=== PATIENT | male | born 1945 | race Two or more races ===

== ENCOUNTER 2017-09-17 18:26 | Emergency (ER) | payer OTHER ==
[2017-09-17 19:02] VITALS: BP 148/85; PULSE 83; TEMP 98.1; BMI 75.9
--- NOTE | 2017-09-17 19:57 | PDOC ---
History of Present Illness - General History Source: Patient Exam Limitations: Intoxication - History of Present Illness Initial Comments: 09/17/17 20:55 The patient is a 72 year old male with a significant PMH of alcohol abuse, HTN, hyperlipidemia, and arthritis who presents to the emergency department seeking detox. The patient reports drinking for the past 3 days and has developed shortness of breath. The patient also reports dysuria, diarrhea, and vomiting over the past week. He reports last taking his prescribed medications about 3 days ago. The patient is currently a vague historian. The patient denies chest pain, headache and dizziness. Denies fever, chills, and constipation. Denies urinary frequency, urgency and hematuria. Allergies: NKDA Past surgical history: None reported. Social history: Everyday alcohol use. No reported cigarette or drug use. PCP: Dr. 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 ) COPD: No Dementia: No (deneis memory issues ) Diabetes: No GI Disorders: Yes (gastritis) Disorders: No HTN: Yes Hypercholesterolemia: Yes Kidney Stones: No Liver Disease: No (deneis ) Seizures: No Thyroid Disease: No Other medical history: BPH - Surgical History Abdominal Surgery: No Appendectomy: No Cardiac Surgery: Yes (CARDIAC CATH) Cholecystectomy: No Lung Surgery: No Neurologic Surgery: No Orthopedic Surgery: Yes (right knee/leg) - Reproductive History Testicular Surgery: No - Immunization History Immunization Up to Date: Yes - Suicide/Smoking/Psychosocial Hx Smoking History: Unknown if ever smoked Have you smoked in the past 12 months: No Information on smoking cessation initiated: No 'Breaking Loose' booklet given: 11/16/15 Hx Alcohol Use: Yes Drug/Substance Use Hx: No Substance Use Type: Alcohol Hx Substance Use Treatment: Yes (with us) <Rossana Olmstead - Last Filed: 09/17/17 21:50> - Past Medical History Allergies/Adverse Reactions: Allergies Allergy/AdvReac Type Severity Reaction Status Date / Time No Known Drug Allergies Allergy Verified 09/17/17 18:49 Home Medications: Ambulatory Orders Unobtainable [Unobtainable] 09/17/17 Review of Systems - Review of Systems Able to Perform ROS?: Yes Comments:: 09/17/17 20:56 GENERAL/CONSTITUTIONAL: No fever or chills. No weakness. HEAD, EYES, EARS, NOSE AND THROAT: No change in vision. No ear pain or discharge. No sore throat. CARDIOVASCULAR: (+) Shortness of breath. No chest pain RESPIRATORY: No cough, wheezing, or hemoptysis. GASTROINTESTINAL: (+) Nausea. (+) Vomiting. (+) Diarrhea. No constipation. GENITOURINARY: No dysuria, frequency, or change in urination. MUSCULOSKELETAL: No joint or muscle swelling or pain. No neck or back pain. SKIN: No rash NEUROLOGIC: No headache, vertigo, loss of consciousness, or change in strength/ sensation. ENDOCRINE: No increased thirst. No abnormal weight change. HEMATOLOGIC/LYMPHATIC: No anemia, easy bleeding, or history of blood clots. ALLERGIC/IMMUNOLOGIC: No hives or skin allergy. <Bandar Newman - Last Filed: 09/17/17 20:55> *Physical Exam - Vital Signs Last Vital Signs Temp Pulse Resp BP Pulse Ox 98.1 F 83 18 148/85 94 L 09/17/17 18:51 09/17/17 18:51 09/17/17 18:51 09/17/17 18:51 09/17/17 18:51 - Physical Exam Comments: 09/17/17 20:56 GENERAL: Awake, alert, in no acute distress. HEAD: No signs of trauma EYES: PERRLA, EOMI, sclera anicteric, conjunctiva clear ENT: Auricles normal inspection, hearing grossly normal, nares patent, oropharynx clear without exudates. Moist mucosa NECK: Normal ROM, supple, no lymphadenopathy, JVD, or masses LUNGS: Breath sounds equal, clear to auscultation bilaterally. No wheezes, and no crackles HEART: Regular rate and rhythm, normal S1 and S2, no murmurs, rubs or gallops ABDOMEN: Soft, nontender, normoactive bowel sounds. No guarding, no rebound. No masses EXTREMITIES: Normal range of motion, no edema. No clubbing or cyanosis. No cords, erythema, or tenderness NEUROLOGICAL: Cranial nerves II through XII grossly intact. Normal speech. SKIN: Warm, Dry, normal turgor, no rashes or lesions noted. <Bandar Newman - Last Filed: 09/17/17 20:55> - Vital Signs Last Vital Signs Temp Pulse Resp BP Pulse Ox 98.1 F 83 18 148/85 94 L 09/17/17 18:51 09/17/17 18:51 09/17/17 18:51 09/17/17 18:51 09/17/17 18:51 <Rossana Olmstead - Last Filed: 09/17/17 21:50> ED Treatment Course - LABORATORY CBC & Chemistry Diagram: 09/17/17 21:00 09/17/17 21:00 <Rossana Olmstead - Last Filed: 09/17/17 21:50> *DC/Admit/Observation/Transfer - Attestations Scribe Attestion: 09/17/17 20:57 Documentation prepared by Bandar Newman, acting as medical registrar for Rossana Olmstead MD. <Bandar Newman - Last Filed: 09/17/17 20:55> - Discharge Dispostion Admit: No <Rossana Olmstead - Last Filed: 09/17/17 21:50> Diagnosis at time of Disposition: Alcohol intoxication - Discharge Dispostion Disposition: HOME Condition at time of disposition: Improved - Patient Instructions Printed Discharge Instructions: DI for Alcohol Abuse Additional Instructions: PT IS GOING TO [facility] DETOX WITH HAMMER RUNNER
[2017-09-17] MEDS ORDERED: FOLIC ACID INJECTION - 1 MG, THIAMINE HCL 100 MG, MULTIVIT INJECTION ADULT 10 ML in SOD... IVPB ONE (20:48)
[2017-09-17 21:12] LABS: BASOPHIL 1.4 % (0-2.0); EOSINOPHIL 0.3 % (0-4.5); MCH 30.3 pg (25.7-33.7); MEAN CELL VOLUME 89.1 fl (80-96); MEAN PLT VOLUME 7.8 fl (7.5-11.1); NEUTROPHILS 49.7 % (42.8-82.8); PLATELET COUNT 230 K/MM3 (134-434); RDW 13.9 % (11.9-15.9); WHITE BLOOD COUNT 8.7 K/mm3 (4.0-10.0)
[2017-09-17 21:35] LABS: ANION GAP 10 (8-16); BILIRUBIN,TOTAL 0.9 mg/dL (0.2-1.0); CALCIUM 7.5 mg/dL (8.5-10.1); CO2 27 mmol/L (21-32); CREATININE 0.9 mg/dL (0.7-1.3); GLUCOSE,RANDOM 115 mg/dL (74-106); SGOT/AST 44 U/L (15-37); SGPT/ALT 39 U/L (12-78); TOT PROT 7.5 g/dl (6.4-8.2)
[2017-09-17 21:38] LABS: ALK PHOS 85 U/L (45-117); CPK 816 IU/L (39-308); TROPONIN I < 0.02 ng/ml (0.00-0.05)
[2017-09-17 21:48] LABS: INR 1.07 (0.82-1.09); PROTHROMBIN TIME (PATIENT) 12.1 SEC (9.98-11.88)
--- NOTE | 2017-09-18 14:03 | EKG ---
Test Reason : Blood Pressure : / mmHG Vent. Rate : 080 BPM Atrial Rate : 080 BPM P-R Int : 148 ms QRS Dur : 090 ms QT Int : 400 ms P-R-T Axes : 064 008 047 degrees QTc Int : 461 ms NORMAL SINUS RHYTHM NONSPECIFIC T WAVE ABNORMALITY PROLONGED QT ABNORMAL ECG WHEN COMPARED WITH ECG OF 17-DEC-2015 07:36, NO SIGNIFICANT CHANGE WAS FOUND Confirmed by MELISSA SETH MD ([id number]) on 09/18/2017 2:03:33 PM Referred By: Confirmed By:MELISSA SETH MD
== END 2017-09-17 23:34 | disposition home or self-care (01) ==
LOC: JER 18:26
PROC: 3E033GC Introduction of Other Therapeutic Substance into Peripheral Vein, Percutaneous Approach (ICD-10-PCS; principal; 2017-09-17)
DX: F10.120 Alcohol abuse with intoxication, uncomplicated (principal); Y90.8 Blood alcohol level of 240 mg/100 ml or more; I10 Essential (primary) hypertension; E78.00 Pure hypercholesterolemia, unspecified; N40.0 Benign prostatic hyperplasia without lower urinary tract symptoms; Z98.61 Coronary angioplasty status
CPT/HCPCS: 36415; 71010-TC; 80053; 80307; 82550; 82553; 84484; 85025; 85610; 85730; 93005; 93010; 96365; 96366; 99283-25

== ENCOUNTER 2017-09-17 23:59 | Inpatient (IN) | payer OTHER ==
--- NOTE | 2017-09-18 01:17 | HP ---
CIWA Score - CIWA Score Nausea/Vomitin-No Nausea/No Vomiting Muscle Tremors: 4-Moderate,w/Arms Extend Anxiety: 4-Mod. Anxious/Guarded Agitation: 2 Paroxysmal Sweats: 3 Orientation: 1-Uncertain about Date Tacttile Disturbances: 0-None Auditory Disturbances: 0-None Visual Disturbances: 0-None Headache: 4-Moderately Severe CIWA-Ar Total Score: 18 Admission ROS S - HPI Chief Complaint: Alcohol withdrawal symptoms Allergies/Adverse Reactions: Allergies Allergy/AdvReac Type Severity Reaction Status Date / Time No Known Allergies Allergy Verified 09/18/17 05:00 History of Present Illness: 72 years old male with a long history of alcohol dependence is admitted to detox. Patient reports previous detox and denies suicidal ideation at this time. He has past medical history of HTN, BPH, hypercholestrolemia, depression and gastritis. He is unable to remember his prescribed medications, dosage or pharmacy. He was referred from ER by Dr. Olmstead. Exam Limitations: No Limitations - Ebola screening Have you traveled outside of the country in the last 21 days: No Have you had contact with anyone from an Ebola affected area: No Have you been sick,other than usual withdrawal symptoms: No Do you have a fever: No - Review of Systems Constitutional: Chills, Malaise, Night Sweats, Changes in sleep EENT: reports: Blurred Vision, Sinus Pressure Respiratory: reports: Cough (white phlegm) GI: reports: Diarrhea (x 3), Poor Fluid Intake, Abdominal cramping : reports: No Symptoms Reported Musculoskeletal: reports: Back Pain, Muscle Pain, Muscle Weakness, Neck Pain Integumentary: reports: Other (surgical scar right leg) Endocrine: reports: [place] Hematology: reports: No Symptoms Reported Psychiatric: reports: Mood/Affect Appropiate, Anxious, Depressed Other Systems: Reviewed and Negative Patient History - Patient Medical History Hx Anemia: No Hx Asthma: No Hx Chronic Obstructive Pulmonary Disease (COPD): No Hx Cancer: No Hx Cardiac Disorders: Yes Hx Congestive Heart Failure: No Hx Hypertension: Yes Hx Hypercholesterolemia: Yes Hx Pacemaker: No HX Cerebrovascular Accident: No Hx Seizures: No Hx Dementia: No Hx Diabetes: No Hx Gastrointestinal Disorders: Yes (Gastritis) Hx Liver Disease: No Hx Genitourinary Disorders: Yes (BPH) Hx Sexually Transmitted Disorders: No Hx Renal Disease (ESRD): No Hx Thyroid Disease: No Hx Human Immunodeficiency Virus (HIV): No (Negative 2016) Hx Hepatitis C: No (Negative 2016) Hx Depression: Yes Hx Suicide Attempt: No (Denies suicidal ideation) Hx Bipolar Disorder: Yes Hx Schizophrenia: No - Patient Surgical History Past Surgical History: Yes Hx Neurologic Surgery: No Hx Cataract Extraction: No Hx Cardiac Surgery: No Hx Lung Surgery: No Hx Abdominal Surgery: No Hx Appendectomy: No Hx Cholecystectomy: No Hx Genitourinary Surgery: No Hx Orthopedic Surgery: Yes (right anterior tibial fracture repair) Anesthesia Reaction: No - PPD History Previous Implant?: Yes PPD to be Administered?: Yes - Reproductive History Patient is a Female of Child Bearing Age (11 -55 yrs old): No (Male) - Smoking Cessation Smoking history: Never smoked Have you smoked in the past 12 months: No Hx Chewing Tobacco Use: No Initiated information on smoking cessation: No - Substance & Tx. History Hx Alcohol Use: Yes (BEER) Hx Substance Use: No Substance Use Type: Alcohol Hx Substance Use Treatment: Yes ([facility]) - Substances Abused Alcohol Route: Oral Frequency: Daily Amount used: BEER; 10 x (24 oz.) Age of first use: 20 Date of Last Use: 09/17/17 Family Disease History - Family Disease History Family Disease History: Other: Father (Alcoholic- ) Admission Physical Exam [facility] - Physical General Appearance: Yes: Moderate Distress, Alcohol on Breath, Tremorous, Irritable, Anxious HEENTM: Yes: EOMI, MARKUS Respiratory: Yes: Lungs Clear, Normal Breath Sounds, No Respiratory Distress Neck: Yes: Supple Breast: Yes: Breast Exam Deferred Cardiology: Yes: Regular Rhythm, Regular Rate, S1, S2 Abdominal: Yes: Protuberent Genitourinary: Yes: Within Normal Limits Back: Yes: Within Normal Limits Musculoskeletal: Yes: Muscle Pain, Muscle weakness, Other (right anterior tibial surgical scar) Extremities: Yes: Tremors Neurological: Yes: Alert, Normal Response Integumentary: Yes: Dry, Other (bruises to bilateral hands) Lymphatic: Yes: Within Normal Limits - Diagnostic (1) Alcohol dependence with uncomplicated withdrawal Current Visit: Yes Status: Chronic (2) HTN (hypertension) Current Visit: Yes Status: Chronic (3) Hypercholesteremia Current Visit: Yes Status: Chronic (4) BPH (benign prostatic hyperplasia) Current Visit: Yes Status: Chronic (5) Gastritis Current Visit: Yes Status: Chronic Cleared for Admission [facility] - Detox or Rehab [facility] Level of Care: Medically Managed Detox Regimen/Protocol: Librium [facility] Breath Alcohol Content Breath Alcohol Content: 0.033 Vital Signs - Vital Signs Vital Signs Refused: No Temperature: 97.6 F Temperature Source: Oral Pulse Rate: 76 Respiratory Rate: 20 Blood Pressure: 131/96 BP Location: Left Arm Blood Pressure Position: Sitting - Height Height: 5 ft 5 in - Weight Weight: 214 lb Weight Measurement Method: Standing Scale Body Mass Index (BMI): 35.6 Urine Drug Screen - Test Device Lot Number: [id number] Expiration Date: 05/22/19 - Control Is Test Valid: Yes - Results Drug Screen Negative: Yes
[2017-09-18 01:42] VITALS: BMI 35.6
[2017-09-18] MEDS ORDERED: ACETAMINOPHEN 325 MG TABLET (FP) PO PRN (01:50)
[2017-09-18] MEDS ORDERED: IBUPROFEN 400 MG TABLET (FP) PO PRN (01:50)
[2017-09-18] MEDS ORDERED: MAG HYDROX/AL HYDROX/SIMETH 30 ML UNIT-DOSE CUP PO PRN (01:50)
[2017-09-18] MEDS ORDERED: chlordiazePOXIDE HCL 25 MG CAPSULE PO ONE (01:50)
[2017-09-18] MEDS ORDERED: NICOTINE POLACRILEX 2 MG GUM BC PRN (01:50)
[2017-09-18] MEDS ORDERED: MENTHOL/PHENOL 1 EACH UD MM PRN (01:50)
[2017-09-18] MEDS ORDERED: MAGNESIUM HYDROX 2400MG/30ML ORAL SUSPENSION 30 ML CUP PO PRN (01:50)
[2017-09-18] MEDS ORDERED: LOPERAMIDE HCL 2 MG CAPSULE PO PRN (01:50)
[2017-09-18] MEDS ORDERED: MAGNESIUM CITRATE 300 ML BOTTLE PO PRN (01:50)
[2017-09-18] MEDS ORDERED: guaiFENesin/D-METHORPHAN HB 10 ML UNIT-DOSE CUPS PO PRN (01:50)
[2017-09-18] MEDS ORDERED: chlordiazePOXIDE HCL 25 MG CAPSULE PO PRN (01:50)
[2017-09-18] MEDS ORDERED: hydrOXYzine PAMOATE 50 MG CAPSULE (FP) PO PRN (01:50)
[2017-09-18] MEDS ORDERED: P-EPHED 60MG/TRIPROLIDI 2.5MG TABLET PO PRN (01:50)
[2017-09-18] MEDS ORDERED: cloNIDine HCL 0.1 MG TABLET PO ONE (02:40)
[2017-09-18] MEDS: chlordiazePOXIDE HCL 25 MG CAPSULE PO SCH ×4 (05:07→22:06)
--- NOTE | 2017-09-18 07:44 | CONSULT ---
[facility] Psychiatric Consult - Data Date of interview: 09/18/17 Admission source: [facility] Identifying data: This is 72 yeras old mohawk speaking male with no p[ sychiatric hoispitalization history intoxicated with: male with Alcohol Substance Abuse History: - Smoking Cessation. Smoking history: Never smoked. Have you smoked in the past 12 months: No. Hx Chewing Tobacco Use: No. Initiated information on smoking cessation: No. - Substance & Tx. History. Hx Alcohol Use: Yes (BEER). Hx Substance Use: No. Substance Use Type: Alcohol. Hx Substance Use Treatment: Yes ([facility]). - Substances Abused. Alcohol. Route: Oral. Frequency: Daily. Amount used: BEER; 10 x (24 oz.). Age of first use: 20. Date of Last Use: 09/17/17 Medical History: HTN, Hypercholesterolemia, BPH, Gastritis history Psychiatric History: Denies Physical/Sexual Abuse/Trauma History: Denies Additional Comment: Observatopm. Detox Unit Care Protocol Mental Status Exam - Mental Status Exam Alert and Oriented to: Person Cognitive Function: Fair Patient Appearance: Unkempt Mood: Anxious Affect: Labile Patient Behavior: Cooperative Speech Pattern: Excessive Voice Loudness: Mildly Loud Thought Process: Goal Oriented Thought Disorder: Being Controlled Hallucinations: Denies Suicidal Ideation: Denies Homicidal Ideation: Denies Insight/Judgement: Fair Sleep: Difficulty falling asleep Appetite: Weight gain Muscle strength/Tone: Mild Hypotonicity Gait/Station: Shuffling Additional Comments: Observatopm. Detox Unit Care Protocol Psychiatric Findings - Problem List ([place] 1, 2,3) (1) Alcohol-induced mood disorder Current Visit: Yes Status: Acute (2) Alcohol dependence with uncomplicated withdrawal Current Visit: Yes Status: Chronic - Initial Treatment Plan Initial Treatment Plan: Observatopm. Detox Unit Care Protocol
[2017-09-18 10:00] LABS: MCH 29.4 pg (25.7-33.7); MEAN CELL VOLUME 89.3 fl (80-96); MEAN PLT VOLUME 8.2 fl (7.5-11.1); PLATELET COUNT 232 K/MM3 (134-434); WHITE BLOOD COUNT 6.2 K/mm3 (4.0-10.0)
--- NOTE | 2017-09-18 10:06 | PN ---
S CIWA - CIWA Score Nausea/Vomitin-No Nausea/No Vomiting Muscle Tremors: 4-Moderate,w/Arms Extend Anxiety: 4-Mod. Anxious/Guarded Agitation: 4-Moderately Restless Paroxysmal Sweats: 3 Orientation: 0-Oriented Tacttile Disturbances: 0-None Auditory Disturbances: 0-None Visual Disturbances: 0-None Headache: 0-None Present CIWA-Ar Total Score: 15 [facility] Progress Note (SOAP) Subjective: diarrhea sweats shakes interrupted sleep body aches Objective: 09/18/17 10:05 Vital Signs Temperature 97.5 F L 09/18/17 09:23 Pulse Rate 98 H 09/18/17 09:23 Respiratory Rate 20 09/18/17 09:23 Blood Pressure 153/87 09/18/17 09:23 O2 Sat by Pulse Oximetry (%) labs pending aaox3 ambulating no acute distress Assessment: 09/18/17 10:06 withdrawals sx Plan: continue detox increase fluids f/u pending labs
[2017-09-18] MEDS: PRENATAL VITAMINS W/ FOLIC ACID TABLET (FP) PO SCH (10:08)
[2017-09-18] MEDS: NICOTINE 14 MG/24 HOURS TOPICAL PATCH TD SCH (10:09)
[2017-09-18 10:25] LABS: ALBUMIN 3.9 g/dl (3.4-5.0); ALK PHOS 76 U/L (45-117); ANION GAP 8 (8-16); BILIRUBIN,TOTAL 1.3 mg/dL (0.2-1.0); CALCIUM 7.6 mg/dL (8.5-10.1); CO2 27 mmol/L (21-32); CREATININE 0.9 mg/dL (0.7-1.3); GLUCOSE,RANDOM 101 mg/dL (74-106); SGOT/AST 42 U/L (15-37); SGPT/ALT 37 U/L (12-78); TOT PROT 7.3 g/dl (6.4-8.2)
[2017-09-18] MEDS: THIAMINE HCL 100 MG TABLET (FP) PO SCH (22:05)
--- NOTE | 2017-09-19 01:02 | EKG ---
Test Reason : Blood Pressure : / mmHG Vent. Rate : 086 BPM Atrial Rate : 086 BPM P-R Int : 132 ms QRS Dur : 082 ms QT Int : 346 ms P-R-T Axes : 036 003 030 degrees QTc Int : 414 ms NORMAL SINUS RHYTHM NONSPECIFIC T WAVE ABNORMALITY ABNORMAL ECG WHEN COMPARED WITH ECG OF 18-SEP-2017 02:19, T WAVE VARIATION Confirmed by MELISSA SETH MD ([id number]) on 09/19/2017 1:02:08 AM Referred By: Confirmed By:MELISSA SETH MD
--- NOTE | 2017-09-19 01:02 | EKG ---
Test Reason : Blood Pressure : / mmHG Vent. Rate : 091 BPM Atrial Rate : 091 BPM P-R Int : 142 ms QRS Dur : 082 ms QT Int : 374 ms P-R-T Axes : 070 035 067 degrees QTc Int : 460 ms NORMAL SINUS RHYTHM SEPTAL INFARCT , AGE UNDETERMINED ABNORMAL ECG NO PREVIOUS ECGS AVAILABLE Confirmed by MELISSA SETH MD ([id number]) on 09/19/2017 1:02:11 AM Referred By: Confirmed By:MELISSA SETH MD
[2017-09-19] MEDS: chlordiazePOXIDE HCL 25 MG CAPSULE PO SCH ×4 (06:23→22:12)
[2017-09-19] MEDS: PRENATAL VITAMINS W/ FOLIC ACID TABLET (FP) PO SCH (10:14)
[2017-09-19] MEDS: NICOTINE 14 MG/24 HOURS TOPICAL PATCH TD SCH (10:14)
--- NOTE | 2017-09-19 11:11 | PN ---
[facility] CIWA - CIWA Score Nausea/Vomitin Muscle Tremors: 3 Anxiety: 3 Agitation: 3 Paroxysmal Sweats: 3 Orientation: 0-Oriented Tacttile Disturbances: 1-Very Mild Itch/Numbness Auditory Disturbances: 0-None Visual Disturbances: 0-None Headache: 1-Very Mild CIWA-Ar Total Score: 17 S Progress Note (SOAP) Subjective: nausea, sweats, interrupted sleep, anxiety, tremors Objective: 09/19/17 11:09 Vital Signs - 8 hr 09/19/17 09/19/17 06:00 10:00 Temperature 96.8 F L 98.4 F Pulse Rate 57 L 76 Respiratory 20 20 Rate Blood Pressure 107/63 160/75 Laboratory Tests 09/18/17 09/18/17 09/18/17 07:00 07:00 07:00 WBC 6.2 RBC 4.55 Hgb 13.4 Hct 40.6 MCV 89.3 MCH 29.4 MCHC 33.0 RDW 14.0 Plt Count 232 MPV 8.2 Manual Slide Review No Result Required. Sodium 139 Potassium 3.9 Chloride 104 Carbon Dioxide 27 Anion Gap 8 BUN 11 Creatinine 0.9 Creat Clearance w eGFR > 60 Random Glucose 101 Calcium 7.6 L Total Bilirubin 1.3 H AST 42 H ALT 37 Alkaline Phosphatase 76 Total Protein 7.3 Albumin 3.9 RPR Titer Nonreactive Assessment: 09/19/17 11:10 withdrawal sx, cont detox, fluids, encourage ambulation
[2017-09-19] MEDS: THIAMINE HCL 100 MG TABLET (FP) PO SCH (22:11)
[2017-09-20] MEDS: chlordiazePOXIDE 5 MG CAPSULE PO SCH ×4 (06:03→22:04)
[2017-09-20] MEDS: NICOTINE 14 MG/24 HOURS TOPICAL PATCH TD SCH (10:09)
[2017-09-20] MEDS: PRENATAL VITAMINS W/ FOLIC ACID TABLET (FP) PO SCH (10:09)
[2017-09-20] MEDS ORDERED: IBUPROFEN 600 MG TABLET (FP) PO PRN (10:55)
--- NOTE | 2017-09-20 10:55 | PN ---
[facility] Progress Note (SOAP) Subjective: knee pain sweats Objective: 09/20/17 10:54 Vital Signs Temperature 97.9 F 09/20/17 06:00 Pulse Rate 68 09/20/17 07:33 Respiratory Rate 18 09/20/17 07:33 Blood Pressure 149/74 09/20/17 07:33 O2 Sat by Pulse Oximetry (%) aaox3 ambulating no acute distress Assessment: 09/20/17 10:55 withdrawal sx Plan: continue detox increase fluids motrin prn smitha bandage prn d/c in am
[2017-09-20] MEDS: METOPROLOL TARTRATE 50 MG TABLET (FP) PO SCH (12:44)
[2017-09-20] MEDS: PANTOPRAZOLE 20 MG TABLET (FP) PO SCH (12:44)
[2017-09-20] MEDS: THIAMINE HCL 100 MG TABLET (FP) PO SCH (22:04)
[2017-09-21] MEDS: chlordiazePOXIDE HCL 10 MG CAPSULE PO SCH ×2 (06:00→11:00)
--- NOTE | 2017-09-21 08:56 | DS ---
[facility] Detox Discharge Summary Admission Date: 09/18/17 Discharge Date: 09/21/17 - History Present History: Alcohol Dependence - Physical Exam Results Vital Signs: Vital Signs Temperature 96.4 F L 09/21/17 06:06 Pulse Rate 75 09/21/17 06:06 Respiratory Rate 18 09/21/17 06:06 Blood Pressure 150/82 09/21/17 06:06 O2 Sat by Pulse Oximetry (%) - Treatment Hospital Course: Detox Protocol Followed, Detoxed Safely, Responded well, Discharged Condition Good, Rehab Referral Accepted - Medication Discharge Medications: Ambulatory Orders Unobtainable [Unobtainable] 09/17/17 Metoprolol Tartrate 50 mg PO DAILY 09/18/17 Omeprazole 20 mg PO DAILY 09/18/17 Tamsulosin HCl [Flomax] 0.4 mg PO DAILY 09/18/17 - Diagnosis (1) Hyperlipidemia Current Visit: Yes Status: Chronic Qualifiers: Hyperlipidemia type: pure hypercholesterolemia Qualified Code(s): E78.00 - Pure hypercholesterolemia, unspecified; E78.0 - Pure hypercholesterolemia (2) Alcohol dependence with uncomplicated withdrawal Current Visit: Yes Status: Chronic (3) HTN (hypertension) Current Visit: Yes Status: Chronic Qualifiers: Hypertension type: essential hypertension Qualified Code(s): I10 - Essential (primary) hypertension (4) Hypercholesteremia Current Visit: Yes Status: Deleted (5) BPH (benign prostatic hyperplasia) Current Visit: Yes Status: Chronic Qualifiers: Lower urinary tract symptom detail: unspecified (6) Gastritis Current Visit: Yes Status: Chronic Qualifiers: Gastritis type: unspecified gastritis Chronicity: unspecified Gastritis bleeding: without bleeding Qualified Code(s): K29.70 - Gastritis, unspecified , without bleeding (7) Alcohol-induced mood disorder Current Visit: Yes Status: Chronic - AMA Did Patient Leave Against Medical Advice: No
[2017-09-21 09:20] VITALS: BP 133/94; PULSE 73; TEMP 97
[2017-09-21] MEDS ORDERED: TAMSULOSIN HCL 0.4 MG CAP.ER.24H (FP) PO SCH (10:00)
[2017-09-21] MEDS: PRENATAL VITAMINS W/ FOLIC ACID TABLET (FP) PO SCH (10:22)
[2017-09-21] MEDS: NICOTINE 14 MG/24 HOURS TOPICAL PATCH TD SCH (10:23)
[2017-09-21] MEDS: METOPROLOL TARTRATE 50 MG TABLET (FP) PO SCH (10:23)
[2017-09-21] MEDS: PANTOPRAZOLE 20 MG TABLET (FP) PO SCH (10:24)
== END 2017-09-21 10:35 | disposition home or self-care (01) | DRG 897 ==
LOC: EDBD 23:59 → YASAS 23:59 → MERGE 09-18 01:13 → Y6N 09-18 01:13
PROVIDERS: ADMIT Internal Medicine; ATTEND Internal Medicine
PROC: HZ2ZZZZ Detoxification Services for Substance Abuse Treatment (ICD-10-PCS; principal; 2017-09-18)
DX: F10.230 Alcohol dependence with withdrawal, uncomplicated (principal); F10.24 Alcohol dependence with alcohol-induced mood disorder; E78.5 Hyperlipidemia, unspecified; I10 Essential (primary) hypertension; N40.0 Benign prostatic hyperplasia without lower urinary tract symptoms; K29.70 Gastritis, unspecified, without bleeding
CPT/HCPCS: 36415; 71010-TC; 71020-TC; 80053; 80307; 82550; 82553; 84484; 85025; 85027; 85610; 85730; 86593; 93005; 93010; 96365; 96366; 99283-25

== ENCOUNTER 2017-10-30 01:40 | Inpatient (IN) | payer OTHER ==
--- NOTE | 2017-10-30 01:50 | HP ---
CIWA Score - CIWA Score Nausea/Vomitin Muscle Tremors: 4-Moderate,w/Arms Extend Anxiety: 4-Mod. Anxious/Guarded Agitation: 3 Paroxysmal Sweats: 2 Orientation: 1-Uncertain about Date Tacttile Disturbances: 0-None Auditory Disturbances: 0-None Visual Disturbances: 0-None Headache: 0-None Present CIWA-Ar Total Score: 17 Admission ROS S - HPI Chief Complaint: Alcohol withdrawal symptoms Allergies/Adverse Reactions: Allergies Allergy/AdvReac Type Severity Reaction Status Date / Time No Known Drug Allergies Allergy Verified 10/29/17 19:39 History of Present Illness: 72 years old male referred from ER by Dr. Olmstead is to be admitted to detox. Patient has a long history of alcohol dependence. He has been in previous detox , last was at [facility] in August 2017. he was seen today at ER with complaint of chest pain. Denies chest pain and discomfort at this time. Rates chest pain now at 0 on the orozco pain scale. He has medical history of HTN, hyperlipidemia, arthritis, gastritis, depression, BPH, chronic chest pain and heart artery stent. He denies suicidal ideation at this time. Patient ambulates with a cane and has unsteady gait. Fall precaution initiated. Exam Limitations: Physical Impairment (ambulaqtes with a cane) - Ebola screening Have you traveled outside of the country in the last 21 days: No Have you had contact with anyone from an Ebola affected area: No Have you been sick,other than usual withdrawal symptoms: No Do you have a fever: No - Review of Systems Constitutional: Chills, Loss of Appetite, Malaise, Night Sweats, Changes in sleep EENT: reports: Nose Congestion, Sinus Pressure Respiratory: reports: Cough (yellow phlegm) Cardiac: reports: No Symptoms Reported GI: reports: Nausea, Poor Appetite, Poor Fluid Intake, Abdominal cramping : reports: No Symptoms Reported Musculoskeletal: reports: Joint Pain, Muscle Pain, Muscle Weakness, Joint Stiffness (h/o arthritis) Integumentary: reports: Flushing, Sweating Neuro: reports: Tingling, Tremors, Unsteady Gait Endocrine: reports: Flushing Hematology: reports: No Symptoms Reported Psychiatric: reports: Anxious Other Systems: Reviewed and Negative Patient History - Patient Medical History Hx Anemia: No Hx Asthma: No Hx Chronic Obstructive Pulmonary Disease (COPD): No Hx Cancer: No Hx Cardiac Disorders: Yes Hx Congestive Heart Failure: No Hx Hypertension: Yes Hx Hypercholesterolemia: Yes Hx Pacemaker: No HX Cerebrovascular Accident: No Hx Seizures: No Hx Dementia: No Hx Diabetes: No Hx Gastrointestinal Disorders: Yes (Gastritis) Hx Liver Disease: No Hx Genitourinary Disorders: Yes (BPH) Hx Sexually Transmitted Disorders: No Hx Renal Disease (ESRD): No Hx Thyroid Disease: No Hx Human Immunodeficiency Virus (HIV): No (Negative 2015) Hx Hepatitis C: No (Negative 2015) Hx Depression: Yes Hx Suicide Attempt: No (Denies suicidal ideation) Hx Bipolar Disorder: Yes Hx Schizophrenia: No - Patient Surgical History Past Surgical History: Yes Hx Neurologic Surgery: No Hx Cataract Extraction: No Hx Cardiac Surgery: No Hx Lung Surgery: No Hx Abdominal Surgery: No Hx Appendectomy: No Hx Cholecystectomy: No Hx Genitourinary Surgery: No Hx Section: No Hx Orthopedic Surgery: Yes (right anterior tibial fracture repair) Anesthesia Reaction: No - PPD History Previous Implant?: No (PPD POSITIVE) Implanted On Prior [facility] Admission?: Yes Date: 09/20/17 PPD to be Administered?: No - Reproductive History Patient is a Female of Child Bearing Age (11 -55 yrs old): No (male) - Smoking Cessation Smoking history: Never smoked Have you smoked in the past 12 months: No Hx Chewing Tobacco Use: No Initiated information on smoking cessation: No - Substance & Tx. History Hx Alcohol Use: Yes Hx Substance Use: No Substance Use Type: Alcohol Hx Substance Use Treatment: Yes ([facility] 08/2017) - Substances Abused Alcohol Route: Oral Frequency: Daily Amount used: BACARDI 3 PINTS Age of first use: 20 Date of Last Use: 10/30/17 Family Disease History - Family Disease History Family Disease History: Heart Disease: Father, Mother, Other: Father Admission Physical Exam S - Physical General Appearance: Yes: Moderate Distress, Alcohol on Breath, Tremorous, Irritable, Sweating, Anxious HEENTM: Yes: EOMI, MARKUS, Nasal Congestion Respiratory: Yes: Lungs Clear, Normal Breath Sounds, No Respiratory Distress Neck: Yes: Supple Breast: Yes: Breast Exam Deferred Cardiology: Yes: Regular Rhythm, Regular Rate, S1, S2 Abdominal: Yes: Normal Bowel Sounds, Soft Genitourinary: Yes: Within Normal Limits Back: Yes: Normal Inspection Musculoskeletal: Yes: Joint Stiffness, Muscle Pain, Muscle weakness Extremities: Yes: Tremors Neurological: Yes: Alert, Normal Mood/Affect, Normal Response Integumentary: Yes: Dry, Diaphoresis Lymphatic: Yes: Within Normal Limits - Diagnostic (1) Alcohol dependence with uncomplicated withdrawal Current Visit: Yes Status: Chronic (2) Chronic chest pain Current Visit: Yes Status: Chronic (3) H/O heart artery stent Current Visit: Yes Status: Chronic (4) BPH (benign prostatic hyperplasia) Current Visit: Yes Status: Chronic Qualifiers: Lower urinary tract symptom detail: unspecified (5) Gastritis Current Visit: Yes Status: Chronic Qualifiers: Gastritis type: unspecified gastritis Chronicity: unspecified Gastritis bleeding: without bleeding Qualified Code(s): K29.70 - Gastritis, unspecified , without bleeding (6) HTN (hypertension) Current Visit: Yes Status: Chronic Qualifiers: Hypertension type: essential hypertension Qualified Code(s): I10 - Essential (primary) hypertension (7) Hyperlipidemia Current Visit: Yes Status: Chronic Qualifiers: Hyperlipidemia type: pure hypercholesterolemia Qualified Code(s): E78.00 - Pure hypercholesterolemia, unspecified; E78.0 - Pure hypercholesterolemia Cleared for Admission S - Detox or Rehab [facility] Level of Care: Medically Managed Detox Regimen/Protocol: Librium [facility] Breath Alcohol Content Breath Alcohol Content: 0.064 Vital Signs - Vital Signs Vital Signs Refused: No Temperature: 99.1 F Temperature Source: Oral Pulse Rate: 80 Respiratory Rate: 20 Blood Pressure: 132/75 - Height Height: 5 ft 5 in - Weight Weight: 201 lb Weight Measurement Method: Standing Scale Body Mass Index (BMI): 33.4 - Bowel Function Bowel Movement: No Urine Drug Screen - Test Device Lot Number: [id number] Expiration Date: 07/22/19 - Control Is Test Valid: Yes - Results Drug Screen Negative: No Urine Drug Screen Results: BZO-Benzodiazepines (PATIENT WAS MEDICATED WITH LIBRIUM IN ER)
[2017-10-30] MEDS ORDERED: MAGNESIUM HYDROX 2400MG/30ML ORAL SUSPENSION 30 ML CUP PO PRN (02:03)
[2017-10-30] MEDS ORDERED: MENTHOL/PHENOL 1 EACH UD MM PRN (02:03)
[2017-10-30] MEDS ORDERED: MAG HYDROX/AL HYDROX/SIMETH 30 ML UNIT-DOSE CUP PO PRN (02:03)
[2017-10-30] MEDS ORDERED: P-EPHED 60MG/TRIPROLIDI 2.5MG TABLET PO PRN (02:03)
[2017-10-30] MEDS ORDERED: LOPERAMIDE HCL 2 MG CAPSULE PO PRN (02:03)
[2017-10-30] MEDS ORDERED: MAGNESIUM CITRATE 300 ML BOTTLE PO PRN (02:03)
[2017-10-30] MEDS ORDERED: guaiFENesin/D-METHORPHAN HB 10 ML UNIT-DOSE CUPS PO PRN (02:03)
[2017-10-30] MEDS ORDERED: chlordiazePOXIDE HCL 25 MG CAPSULE PO PRN (02:03)
[2017-10-30] MEDS ORDERED: ACETAMINOPHEN 325 MG TABLET (FP) PO PRN (02:03)
[2017-10-30] MEDS ORDERED: chlordiazePOXIDE HCL 25 MG CAPSULE PO ONE (02:03)
[2017-10-30 02:14] VITALS: BMI 33.4
[2017-10-30] MEDS: chlordiazePOXIDE HCL 25 MG CAPSULE PO SCH ×4 (05:27→22:04)
[2017-10-30] MEDS ORDERED: METOPROLOL TARTRATE 25 MG TABLET (FP) PO SCH ×2 (10:00)
[2017-10-30] MEDS: ASPIRIN 81 MG CHEWABLE TABLETS PO SCH (10:03)
[2017-10-30] MEDS: METOPROLOL TARTRATE 25 MG TABLET (FP) PO SCH (10:03)
[2017-10-30] MEDS: PRENATAL VITAMINS W/ FOLIC ACID TABLET (FP) PO SCH (10:03)
--- NOTE | 2017-10-30 10:40 | PN ---
S Progress Note Note: S: Patient seen for follow up on alcohol dependence. He is on librium protocol and presently c/o poor sleep, tremor and sweating. He denies any other withdrawal symptoms at this time. O: A/A/Ox3, in nad, vss, ambulatory with steady gait; labs noted: bun 26 A: Withdrawal symptoms r/t alcohol dependence; noted with azotemia P: Continue detox Azotemia: encouraged to drink lots of water
--- NOTE | 2017-10-30 12:45 | EKG ---
Test Reason : Blood Pressure : / mmHG Vent. Rate : 073 BPM Atrial Rate : 073 BPM P-R Int : 126 ms QRS Dur : 084 ms QT Int : 366 ms P-R-T Axes : 022 020 043 degrees QTc Int : 403 ms NORMAL SINUS RHYTHM WITH SINUS ARRHYTHMIA NONSPECIFIC T WAVE ABNORMALITY ABNORMAL ECG WHEN COMPARED WITH ECG OF 17-SEP-2017 18:44, NO SIGNIFICANT CHANGE WAS FOUND Confirmed by MELISSA SETH MD ([id number]) on 10/30/2017 12:45:18 PM Referred By: Confirmed By:MELISSA SETH MD
[2017-10-30] MEDS: ROSUVASTATIN CA 10 MG TABLET (FP) PO SCH (12:56)
--- NOTE | 2017-10-30 13:17 | CONSULT ---
[facility] Psychiatric Consult - Data Date of interview: 10/30/17 Admission source: [facility] Identifying data: Readmission to [facility] for this 72 y/o [place]born male seeking detox treatment on for alcohol dependence.Patient is single,a father of two,domiciled,unemployed and currently supported on [facility] benefits. Substance Abuse History: Confirmed by the patient in this interview.See details in current [facility] report : Smoking history: Never smoked. Have you smoked in the past 12 months: No. Hx Chewing Tobacco Use: No. Initiated information on smoking cessation: No. - Substance & Tx. History. Hx Alcohol Use: Yes. Hx Substance Use: No. Substance Use Type: Alcohol. Hx Substance Use Treatment: Yes ([facility] 08/2017). - Substances Abused. Alcohol. Route: Oral. Frequency : Daily. Amount used: BACARDI 3 PINTS. Age of first use: 20. Date of Last Use : 10/30/17 Medical History: Benign prostatic hypertrophy (BPH),gastritis,dyslipidemia, coronary arterry disease (stent in place),hemophilus pylori,arthritis,history of CVA and past orthosurgery for fracture of right tibia.Patient ambulates with a cane. Psychiatric History: Patient denies history of psychiatric hospitalizations.No reported history of OPD care or psychotropic medications.Mr Gordon denies history of suicide attempts. Physical/Sexual Abuse/Trauma History: Patient denies. Additional Comment: Urine Drug Screen Results: BZO-Benzodiazepines (PATIENT WAS MEDICATED WITH LIBRIUM IN ER).Report noted. Mental Status Exam - Mental Status Exam Alert and Oriented to: Time, Place, Person Cognitive Function: Good Patient Appearance: Well Groomed (short stature,overweight) Mood: Hopeful, Euthymic Affect: Appropriate, Normal Range Patient Behavior: Fatigued, Appropriate, Cooperative (friendly,well-mannered) Speech Pattern: Clear, Appropriate (relevant in telugu) Voice Loudness: Normal Thought Process: Intact, Goal Oriented Thought Disorder: Not Present Hallucinations: Denies Suicidal Ideation: Denies Homicidal Ideation: Denies Insight/Judgement: Fair Sleep: Poorly, Difficulty falling asleep Appetite: Good Gait/Station: Other (walks with a cane) Psychiatric Findings - Problem List ([place] 1, 2,3) (1) Alcohol dependence with uncomplicated withdrawal Current Visit: Yes Status: Acute (2) Insomnia Current Visit: Yes Status: Acute - Initial Treatment Plan Initial Treatment Plan: Previoius records are revisited.Psychoeducation.Sleep hygiene discussed.Detoxification in progress.Patient reports improvement of sleep during this course of treatment (currently on librium).Will observe daily progress.Fall precautions.
[2017-10-30] MEDS: THIAMINE HCL 100 MG TABLET (FP) PO SCH (22:03)
[2017-10-31] MEDS: chlordiazePOXIDE HCL 25 MG CAPSULE PO SCH ×4 (05:06→22:26)
[2017-10-31 10:20] LABS: MCH 29.2 pg (25.7-33.7); MCHC 31.9 g/dl (32.0-35.9); MEAN CELL VOLUME 91.6 fl (80-96); MEAN PLT VOLUME 9.4 fl (7.5-11.1); PLATELET COUNT 260 K/MM3 (134-434); RDW 15.8 % (11.9-15.9); WHITE BLOOD COUNT 8.4 K/mm3 (4.0-10.0)
[2017-10-31] MEDS: ROSUVASTATIN CA 10 MG TABLET (FP) PO SCH (10:24)
[2017-10-31] MEDS: ASPIRIN 81 MG CHEWABLE TABLETS PO SCH (10:24)
[2017-10-31] MEDS: METOPROLOL TARTRATE 25 MG TABLET (FP) PO SCH (10:24)
[2017-10-31] MEDS: PRENATAL VITAMINS W/ FOLIC ACID TABLET (FP) PO SCH (10:24)
[2017-10-31 10:30] LABS: ALK PHOS 103 U/L (45-117); ANION GAP 12 (8-16); BLOOD UREA NITROGEN 26 mg/dL (7-18); CALCIUM 8.1 mg/dL (8.5-10.1); CHLORIDE 103 mmol/L (98-107); CO2 23 mmol/L (21-32); CREATININE 1.1 mg/dL (0.7-1.3); GLUCOSE,RANDOM 120 mg/dL (74-106); POTASSIUM 3.9 mmol/L (3.5-5.1); SGOT/AST 31 U/L (15-37); SGPT/ALT 37 U/L (12-78); SODIUM 138 mmol/L (136-145); TOT PROT 7.8 g/dl (6.4-8.2)
--- NOTE | 2017-10-31 11:04 | PN ---
[facility] CIWA - CIWA Score Nausea/Vomitin Muscle Tremors: 3 Anxiety: 4-Mod. Anxious/Guarded Agitation: 4-Moderately Restless Paroxysmal Sweats: 2 Orientation: 0-Oriented Tacttile Disturbances: 1-Very Mild Itch/Numbness Auditory Disturbances: 0-None Visual Disturbances: 0-None Headache: 0-None Present CIWA-Ar Total Score: 17 B[facility] Progress Note (SOAP) Subjective: Nausea, tremor, sweating, interrupted sleep Objective: 10/31/17 11:00 Last Vital Signs Temp Pulse Resp BP Pulse Ox 97.1 F L 78 20 169/81 10/31/17 10:00 10/31/17 10:00 10/31/17 10:00 10/31/17 10:00 Elevated b/p (has h/o htn and is on medication) Laboratory Tests 10/30/17 10/30/17 10/30/17 07:00 07:00 07:00 WBC RBC Hgb Hct MCV MCH MCHC RDW Plt Count MPV Sodium Potassium Chloride Carbon Dioxide Anion Gap BUN Creatinine Creat Clearance w eGFR Random Glucose Calcium Total Bilirubin AST ALT Alkaline Phosphatase Total Protein Albumin RPR Titer Nonreactive Hepatitis C Antibody <0.1 HIV 1&2 Antibody Screen Negative HIV P24 Antigen Negative 10/31/17 10/31/17 06:00 06:00 WBC 8.4 RBC 4.80 Hgb 14.0 Hct 44.0 MCV 91.6 MCH 29.2 MCHC 31.9 L RDW 15.8 Plt Count 260 MPV 9.4 Sodium 138 Potassium 3.9 Chloride 103 Carbon Dioxide 23 Anion Gap 12 BUN 26 H Creatinine 1.1 Creat Clearance w eGFR > 60 Random Glucose 120 H D Calcium 8.1 L Total Bilirubin 1.0 D AST 31 ALT 37 Alkaline Phosphatase 103 Total Protein 7.8 Albumin 4.0 RPR Titer Hepatitis C Antibody HIV 1&2 Antibody Screen HIV P24 Antigen Labs noted: bun 26 Assessment: 10/31/17 11:00 Withdrawal symptoms Noted with azotemia h/o HTN Plan: Continue detox Azotemia: encouraged to drink adequate amount of water for hydration HTN: continue medication, encouraged low sodium in diet, continue to monitor
[2017-10-31 15:02] LABS: URINE APPEARANCE CLEAR; URINE BILIRUBIN NEGATIVE (NEGATIVE); URINE BLOOD NEGATIVE (NEGATIVE); URINE COLOR YELLOW; URINE GLUCOSE (UA) NEGATIVE (NEGATIVE); URINE KETONE NEGATIVE (NEGATIVE); URINE LEUK ESTERASE NEGATIVE (NEGATIVE); URINE NITRITE NEGATIVE (NEGATIVE)
[2017-10-31 15:21] LABS: URINE PROTEIN 1+ (NEGATIVE)
[2017-10-31 15:23] LABS: URINE MUCUS RARE
[2017-10-31] MEDS: THIAMINE HCL 100 MG TABLET (FP) PO SCH (22:26)
[2017-11-01] MEDS: chlordiazePOXIDE 5 MG CAPSULE PO SCH ×4 (05:29→22:08)
[2017-11-01] MEDS: ROSUVASTATIN CA 10 MG TABLET (FP) PO SCH (10:05)
[2017-11-01] MEDS: ASPIRIN 81 MG CHEWABLE TABLETS PO SCH (10:05)
[2017-11-01] MEDS: PRENATAL VITAMINS W/ FOLIC ACID TABLET (FP) PO SCH (10:06)
[2017-11-01] MEDS: METOPROLOL TARTRATE 25 MG TABLET (FP) PO SCH (10:07)
--- NOTE | 2017-11-01 13:38 | PN ---
[facility] CIWA - CIWA Score Nausea/Vomitin-No Nausea/No Vomiting Muscle Tremors: 4-Moderate,w/Arms Extend Anxiety: 4-Mod. Anxious/Guarded Agitation: 4-Moderately Restless Paroxysmal Sweats: 1-Minimal Palms Moist Orientation: 0-Oriented Tacttile Disturbances: 3-Moderate Itch/Numb/Burn Auditory Disturbances: 0-None Visual Disturbances: 0-None Headache: 0-None Present CIWA-Ar Total Score: 16 BHS Progress Note (SOAP) Subjective: ANXIETY,SWEATS, CHRONIC LEFT KNEE PAIN. Objective: 11/01/17 13:38 Vital Signs Temperature 98.6 F 11/01/17 13:09 Pulse Rate 78 11/01/17 13:09 Respiratory Rate 18 11/01/17 13:09 Blood Pressure 153/77 11/01/17 13:09 O2 Sat by Pulse Oximetry (%) Laboratory Last Values WBC 8.4 K/mm3 (4.0-10.0) 10/31/17 06:00 RBC 4.80 M/mm3 (4.00-5.60) 10/31/17 06:00 Hgb 14.0 GM/dL (11.7-16.9) 10/31/17 06:00 Hct 44.0 % (35.4-49) 10/31/17 06:00 MCV 91.6 fl (80-96) 10/31/17 06:00 MCH 29.2 pg (25.7-33.7) 10/31/17 06:00 MCHC 31.9 g/dl (32.0-35.9) L 10/31/17 06:00 RDW 15.8 % (11.9-15.9) 10/31/17 06:00 Plt Count 260 K/MM3 (134-434) 10/31/17 06:00 MPV 9.4 fl (7.5-11.1) 10/31/17 06:00 Sodium 138 mmol/L (136-145) 10/31/17 06:00 Potassium 3.9 mmol/L (3.5-5.1) 10/31/17 06:00 Chloride 103 mmol/L (98-107) 10/31/17 06:00 Carbon Dioxide 23 mmol/L (21-32) 10/31/17 06:00 Anion Gap 12 (8-16) 10/31/17 06:00 BUN 26 mg/dL (7-18) H 10/31/17 06:00 Creatinine 1.1 mg/dL (0.7-1.3) 10/31/17 06:00 Creat Clearance w eGFR > 60 (>60) 10/31/17 06:00 Random Glucose 120 mg/dL (74-106) H D 10/31/17 06:00 Calcium 8.1 mg/dL (8.5-10.1) L 10/31/17 06:00 Total Bilirubin 1.0 mg/dL (0.2-1.0) D 10/31/17 06:00 AST 31 U/L (15-37) 10/31/17 06:00 ALT 37 U/L (12-78) 10/31/17 06:00 Alkaline Phosphatase 103 U/L (45-117) 10/31/17 06:00 Total Protein 7.8 g/dl (6.4-8.2) 10/31/17 06:00 Albumin 4.0 g/dl (3.4-5.0) 10/31/17 06:00 Urine Color Yellow 10/31/17 09:30 Urine Appearance Clear 10/31/17 09:30 Urine pH 6.0 (5.0-8.0) 10/31/17 09:30 Ur Specific [place] 1.025 (1.001-1.035) 10/31/17 09:30 Urine Protein 1+ (NEGATIVE) H 10/31/17 09:30 Urine Glucose (UA) Negative (NEGATIVE) 10/31/17 09:30 Urine Ketones Negative (NEGATIVE) 10/31/17 09:30 Urine Blood Negative (NEGATIVE) 10/31/17 09:30 Urine Nitrite Negative (NEGATIVE) 10/31/17 09:30 Urine Bilirubin Negative (NEGATIVE) 10/31/17 09:30 Urine Urobilinogen 2.0 mg/dL (0.2-1.0) 10/31/17 09:30 Ur Leukocyte Esterase Negative (NEGATIVE) 10/31/17 09:30 Urine WBC (Auto) <1 /hpf (3-5) 10/31/17 09:30 Urine RBC (Auto) 2 /hpf (0-3) 10/31/17:30 Urine Mucus Rare 10/31/17 09:30 RPR Titer Nonreactive (NONREACTIVE) 10/30/17 07:00 Hepatitis C Antibody <0.1 s/co ratio (0.0-0.9) 10/30/17 07:00 HIV 1&2 Antibody Screen Negative 10/30/17 07:00 HIV P24 Antigen Negative 10/30/17 07:00 Assessment: 11/01/17 13:38 WITHDRAWAL SX Plan: CONTINUE DETOX
[2017-11-01] MEDS: THIAMINE HCL 100 MG TABLET (FP) PO SCH (22:08)
[2017-11-02] MEDS: chlordiazePOXIDE HCL 10 MG CAPSULE PO SCH ×4 (05:42→22:04)
[2017-11-02] MEDS: METOPROLOL TARTRATE 25 MG TABLET (FP) PO SCH (10:18)
[2017-11-02] MEDS: PRENATAL VITAMINS W/ FOLIC ACID TABLET (FP) PO SCH (10:18)
[2017-11-02] MEDS: ROSUVASTATIN CA 10 MG TABLET (FP) PO SCH (10:18)
[2017-11-02] MEDS: ASPIRIN 81 MG CHEWABLE TABLETS PO SCH (10:18)
--- NOTE | 2017-11-02 10:36 | PN ---
[facility] Progress Note (SOAP) Subjective: Interrupted sleep, tremors, anxious Objective: 11/02/17 10:31 Last Vital Signs Temp Pulse Resp BP Pulse Ox 96.4 F L 83 18 141/72 11/02/17 09:29 11/02/17 09:29 11/02/17 09:29 11/02/17 09:29 Hx of HTN on medication Laboratory Last Values WBC 8.4 K/mm3 (4.0-10.0) 10/31/17 06:00 RBC 4.80 M/mm3 (4.00-5.60) 10/31/17 06:00 Hgb 14.0 GM/dL (11.7-16.9) 10/31/17 06:00 Hct 44.0 % (35.4-49) 10/31/17 06:00 MCV 91.6 fl (80-96) 10/31/17 06:00 MCH 29.2 pg (25.7-33.7) 10/31/17 06:00 MCHC 31.9 g/dl (32.0-35.9) L 10/31/17 06:00 RDW 15.8 % (11.9-15.9) 10/31/17 06:00 Plt Count 260 K/MM3 (134-434) 10/31/17 06:00 MPV 9.4 fl (7.5-11.1) 10/31/17 06:00 Sodium 138 mmol/L (136-145) 10/31/17 06:00 Potassium 3.9 mmol/L (3.5-5.1) 10/31/17 06:00 Chloride 103 mmol/L (98-107) 10/31/17 06:00 Carbon Dioxide 23 mmol/L (21-32) 10/31/17 06:00 Anion Gap 12 (8-16) 10/31/17 06:00 BUN 26 mg/dL (7-18) H 10/31/17 06:00 Creatinine 1.1 mg/dL (0.7-1.3) 10/31/17 06:00 Creat Clearance w eGFR > 60 (>60) 10/31/17 06:00 Random Glucose 120 mg/dL (74-106) H D 10/31/17 06:00 Calcium 8.1 mg/dL (8.5-10.1) L 10/31/17 06:00 Total Bilirubin 1.0 mg/dL (0.2-1.0) D 10/31/17 06:00 AST 31 U/L (15-37) 10/31/17 06:00 ALT 37 U/L (12-78) 10/31/17 06:00 Alkaline Phosphatase 103 U/L (45-117) 10/31/17 06:00 Total Protein 7.8 g/dl (6.4-8.2) 10/31/17 06:00 Albumin 4.0 g/dl (3.4-5.0) 10/31/17 06:00 Urine Color Yellow 10/31/17 09:30 Urine Appearance Clear 10/31/17 09:30 Urine pH 6.0 (5.0-8.0) 10/31/17 09:30 Ur Specific [place] 1.025 (1.001-1.035) 10/31/17 09:30 Urine Protein 1+ (NEGATIVE) H 10/31/17 09:30 Urine Glucose (UA) Negative (NEGATIVE) 10/31/17 09:30 Urine Ketones Negative (NEGATIVE) 10/31/17 09:30 Urine Blood Negative (NEGATIVE) 10/31/17 09:30 Urine Nitrite Negative (NEGATIVE) 10/31/17 09:30 Urine Bilirubin Negative (NEGATIVE) 10/31/17 09:30 Urine Urobilinogen 2.0 mg/dL (0.2-1.0) 10/31/17 09:30 Ur Leukocyte Esterase Negative (NEGATIVE) 10/31/17 09:30 Urine WBC (Auto) <1 /hpf (3-5) 10/31/17 09:30 Urine RBC (Auto) 2 /hpf (0-3) 10/31/17 09:30 Urine Mucus Rare 10/31/17 09:30 RPR Titer Nonreactive (NONREACTIVE) 10/30/17 07:00 Hepatitis C Antibody <0.1 s/co ratio (0.0-0.9) 10/30/17 07:00 HIV 1&2 Antibody Screen Negative 10/30/17 07:00 HIV P24 Antigen Negative 10/30/17 07:00 Labs noted 11/02/17 10:36 Assessment: 11/02/17 10:35 withdrawal symptoms Plan: Continue Detox Continue BP medications and low sodium diet for HTN Encourage to increase fluids
[2017-11-02] MEDS: THIAMINE HCL 100 MG TABLET (FP) PO SCH (22:04)
[2017-11-03 06:16] VITALS: BP 143/88; PULSE 70; TEMP 96.5
[2017-11-03] MEDS: PRENATAL VITAMINS W/ FOLIC ACID TABLET (FP) PO SCH (09:05)
[2017-11-03] MEDS: ROSUVASTATIN CA 10 MG TABLET (FP) PO SCH (09:05)
[2017-11-03] MEDS: ASPIRIN 81 MG CHEWABLE TABLETS PO SCH (09:05)
[2017-11-03] MEDS: METOPROLOL TARTRATE 25 MG TABLET (FP) PO SCH (09:05)
--- NOTE | 2017-11-03 10:23 | DS ---
[facility] Detox Discharge Summary Admission Date: 10/30/17 Discharge Date: 11/03/17 - History Present History: Alcohol Dependence Pertinent Past History: GERD HLD HTN BPH - Physical Exam Results Vital Signs: Vital Signs Temperature 96.5 F L 11/03/17 06:15 Pulse Rate 70 11/03/17 06:15 Respiratory Rate 20 11/03/17 06:15 Blood Pressure 143/88 11/03/17 06:15 O2 Sat by Pulse Oximetry (%) Pertinent Admission Physical Exam Findings: Withdrawal symptoms Laboratory Tests 10/30/17 10/30/17 10/30/17 07:00 07:00 07:00 WBC RBC Hgb Hct MCV MCH MCHC RDW Plt Count MPV Sodium Potassium Chloride Carbon Dioxide Anion Gap BUN Creatinine Creat Clearance w eGFR Random Glucose Calcium Total Bilirubin AST ALT Alkaline Phosphatase Total Protein Albumin Urine Color Urine Appearance Urine pH Ur Specific [place] Urine Protein Urine Glucose (UA) Urine Ketones Urine Blood Urine Nitrite Urine Bilirubin Urine Urobilinogen Ur Leukocyte Esterase Urine WBC (Auto) Urine RBC (Auto) Urine Mucus RPR Titer Nonreactive Hepatitis C Antibody <0.1 HIV 1&2 Antibody Screen Negative HIV P24 Antigen Negative 10/31/17 10/31/17 10/31/17 06:00 06:00 09:30 WBC 8.4 RBC 4.80 Hgb 14.0 Hct 44.0 MCV 91.6 MCH 29.2 MCHC 31.9 L RDW 15.8 Plt Count 260 MPV 9.4 Sodium 138 Potassium 3.9 Chloride 103 Carbon Dioxide 23 Anion Gap 12 BUN 26 H Creatinine 1.1 Creat Clearance w eGFR > 60 Random Glucose 120 H D Calcium 8.1 L Total Bilirubin 1.0 D AST 31 ALT 37 Alkaline Phosphatase 103 Total Protein 7.8 Albumin 4.0 Urine Color Yellow Urine Appearance Clear Urine pH 6.0 Ur Specific [place] 1.025 Urine Protein 1+ H Urine Glucose (UA) Negative Urine Ketones Negative Urine Blood Negative Urine Nitrite Negative Urine Bilirubin Negative Urine Urobilinogen 2.0 Ur Leukocyte Esterase Negative Urine WBC (Auto) <1 Urine RBC (Auto) 2 Urine Mucus Rare RPR Titer Hepatitis C Antibody HIV 1&2 Antibody Screen HIV P24 Antigen Labs noted - Treatment Hospital Course: Detox Protocol Followed, Detoxed Safely, Responded well, Discharged Condition Good - Medication Discharge Medications: Ambulatory Orders Acetaminophen 500 mg PO PRN 10/29/17 Aspirin 81 mg PO DAILY 10/29/17 Metoprolol Tartrate 10 mg PO DAILY 10/29/17 Rosuvastatin Calcium [Crestor] 10 mg PO DAILY 10/29/17 - Diagnosis (1) Azotemia Status: Acute (2) Alcohol dependence with uncomplicated withdrawal Status: Acute (3) BPH (benign prostatic hyperplasia) Status: Chronic Qualifiers: Lower urinary tract symptom detail: unspecified (4) Gastritis Status: Chronic Qualifiers: Gastritis type: unspecified gastritis Chronicity: unspecified Gastritis bleeding: without bleeding Qualified Code(s): K29.70 - Gastritis, unspecified , without bleeding (5) Hypertension Status: Chronic Qualifiers: Hypertension type: essential hypertension Qualified Code(s): I10 - Essential (primary) hypertension (6) Hyperlipidemia Status: Chronic Qualifiers: Hyperlipidemia type: unspecified Qualified Code(s): E78.5 - Hyperlipidemia , unspecified - AMA Did Patient Leave Against Medical Advice: No (F/U with PCP within 1 week)
== END 2017-11-03 09:28 | disposition home or self-care (01) | DRG 897 ==
LOC: YASAS 01:40 → Y3N 01:42
PROVIDERS: ADMIT Internal Medicine; ATTEND Internal Medicine
PROC: HZ2ZZZZ Detoxification Services for Substance Abuse Treatment (ICD-10-PCS; principal; 2017-10-30)
DX: F10.230 Alcohol dependence with withdrawal, uncomplicated (principal); F10.24 Alcohol dependence with alcohol-induced mood disorder; F10.982 Alcohol use, unspecified with alcohol-induced sleep disorder; F31.9 Bipolar disorder, unspecified; Z95.5 Presence of coronary angioplasty implant and graft; I10 Essential (primary) hypertension; E78.5 Hyperlipidemia, unspecified; K29.70 Gastritis, unspecified, without bleeding; R79.89 Other specified abnormal findings of blood chemistry; N40.0 Benign prostatic hyperplasia without lower urinary tract symptoms; G47.00 Insomnia, unspecified; R07.9 Chest pain, unspecified; K27.9 Peptic ulcer, site unspecified, unspecified as acute or chronic, without hemorrhage or perforation; Z86.73 Personal history of transient ischemic attack (TIA), and cerebral infarction without residual deficits; Z79.82 Long term (current) use of aspirin; R26.89 Other abnormalities of gait and mobility; Z99.89 Dependence on other enabling machines and devices
CPT/HCPCS: 36415; 71045-TC; 80053; 80307; 81003; 81015; 82550; 82553; 84484; 85025; 85027; 85610; 86593; 86803; 87389; 93005; 93010; 99282-25